=== PATIENT | female | born 1955 | race Caucasian/White ===

== ENCOUNTER 2016-10-18 09:23 | Emergency (ER) | payer OTHER ==
[2016-10-18] MEDS ORDERED: CloNIDine HCL 0.1 MG TABLET PO ONE ×2 (09:44→09:45)
[2016-10-18 10:10] LABS: BASOPHILS % 0.7 (0.0-1.5); EOSINOPHILS % 5.7 % (0.0-6.8); MEAN CORPUSCULAR HEMOGLOBIN 29.8 pg (28.0-34.0); MEAN CORPUSCULAR VOLUME 87.8 fl (80.0-100.0); MONOCYTES % 5.3 % (0.0-11.0); NEUTROPHILS # 2.9 # k/uL (1.4-7.7)
[2016-10-18 10:29] LABS: eGFR (African) > 60; eGFR (Non-African) > 60
[2016-10-18] MEDS ORDERED: hydrALAZINE HCL 20 MG/1 ML IM ONE (10:56)
[2016-10-18] MEDS ORDERED: hydrALAZINE HCL 20 MG/1 ML ONE (10:57)
[2016-10-18 11:45] VITALS: BP 161/83
--- NOTE | 2016-10-18 11:50 | ED Physician Documentation ---
General Adult - HISTORIAN Historian: patient - HPI Stated Complaint: High Blood Pressure Chief Complaint: General Adult Additional Information: Blood pressure high today. Has been using a lot of allergy medications recently. Feels fatigued. No chest pain. No headache. Onset: hours (2) Timing: still present Severity: moderate Modifying Factors: increased allergy meds recently, mowed in heat yesterday Further Comments: no Last known Well Code/Unknown Code: Unknown - ROS CONST: other (fatigue) EYES/ENT: none CVS/RESP: none GI/: none MS/SKIN/LYMPH: none NEURO/PSYCH: denies: headache - PAST HX Past History: hypertension Other History: other (pud) Surgeries/Procedures: other (bladder surgery) Immunizations: referred to PCP Allergies/Adverse Reactions: Allergies Allergy/AdvReac Type Severity Reaction Status Date / Time No Known Drug Allergies Allergy Verified 10/18/16 11:03 Home Medications: Ambulatory Orders Medication Instructions Recorded Azelastine/Fluticasone [Dymista 10/18/16 Nasal [place]] Montelukast Sodium [Singulair] 10 mg PO HS 10/18/16 - SOCIAL HX Smoking History: non-smoker Alcohol Use: occasionally Drug Use: none - FAMILY HX Family History: Yes (cva, htn) - VITAL SIGNS Vital Signs: Vital Signs Temp Pulse Resp BP Pulse Ox 71 16 217/110 98 10/18/16 09:25 10/18/16 09:25 10/18/16 09:25 10/18/16 09:25 - REVIEWED ASSESSMENTS Nursing Assessment Reviewed: Yes Vitals Reviewed: Yes Progress - Results/Orders Results/Orders: cbc, cmp, bnp, trop ordered - Progress Progress: pt. given 0.1 mg clonidine p.o. and 20 mg hydralazine im in er with reduction of bp to 137/88 Critical Care Note - Critical Care Note Total Time (mins): 0 ED Results Lab/Radiology - Lab Results Lab Results: Lab Results 10/18/16 10/18/16 10/18/16 10:00 10:00 10:00 WBC 4.60 K/ul K/ul (4.00-12.00) RBC 5.06 M/ul M/ul (3.90-5.20) Hgb 15.1 g/dL g/dL (12.0-16.0) Hct 44.4 % % (34.5-46.5) MCV 87.8 fl fl (80.0-100.0) MCH 29.8 pg pg (28.0-34.0) MCHC 34.0 g/dL g/dL (30.0-36.0) RDW 13.5 % % (11.3-14.3) Plt Count 207 K/mm3 K/mm3 (130-400) Neut % (Auto) 62.0 % % (39.0-79.0) Lymph % (Auto) 24.7 % % (16.0-50.0) [place] % (Auto) 5.3 % % (0.0-11.0) Eos % (Auto) 5.7 % % (0.0-6.8) Baso % (Auto) 0.7 (0.0-1.5) Neut # (Auto) 2.9 # k/uL # k/uL (1.4-7.7) Lymph # (Auto) 1.2 # k/uL # k/uL (0.6-4.0) [place] # (Auto) 0.2 # k/uL # k/uL (0.0-0.9) Eos # (Auto) 0.3 # k/uL # k/uL (0.0-0.6) Baso # (Auto) 0.0 # k/uL # k/uL (0.0-0.5) Reactive Lymphs % 1.6 % % (0.0-5.0) Reactive Lymphs # 0.1 # k/uL # k/uL (0.0-0.8) Sodium 142 mmol/L mmol/L (136-145) Potassium 3.8 mmol/L mmol/L (3.5-5.0) Chloride 104 mmol/L mmol/L (98-110) Carbon Dioxide 32 mmol/L mmol/L (20-32) BUN 8 mg/dL L mg/dL (10-26) Creatinine 0.7 mg/dL mg/dL (0.4-1.5) Estimated Creat Clear 140 Est GFR ( Amer) > 60 (60 - ) Est GFR (Non-Af Amer) > 60 (60 - ) Glucose 110 mg/dL H mg/dL (70-99) Calcium 10.5 mg/dL mg/dL (8.5-10.5) Total Bilirubin 0.5 mg/dL mg/dL (0.2-1.2) AST 21 U/L U/L (0-41) ALT 15 U/L U/L (0-45) Alkaline Phosphatase 83 U/L U/L (46-116) Troponin I < 0.03 ng/mL L ng/mL (0.03-0.06) NT-Pro-B Natriuret Pep 233.2 pg/mL H pg/mL (15.0-125.0) Total Protein 8.2 g/dL g/dL (6.0-8.5) Albumin 4.9 g/dL g/dL (3.0-5.5) - Radiology Radiology Impressions: none ordered - Orders Orders: ED Orders Category Date Time Status BNP [NT-proBNP] Routine Lab 10/18/16 10:00 Completed CBC/PLATELET/DIFF Routine Lab 10/18/16 10:00 Completed CMP Routine Lab 10/18/16 10:00 Completed TROPONIN I (cTnI) Routine Lab 10/18/16 10:00 Completed URINALYSIS Routine Lab 10/18/16 09:55 Ordered CloNIDine HCL [Catapress] Med 10/18/16 09:44 Discontinued 0.1 mg PO .STK-MED ONE CloNIDine HCL [Catapress] Med 10/18/16 09:45 Discontinued 0.1 mg PO NOW ONE hydrALAZINE HCL [Apresoline] Med 10/18/16 10:57 Discontinued 20 mg .ROUTE .STK-MED ONE hydrALAZINE HCL [Apresoline] Med 10/18/16 10:56 Once 20 mg IM NOW ONE EKG WITH COMPARISON Routine Ther 10/18/16 Ordered General Adult Physical Exam - PHYSICAL EXAM GENERAL APPEARANCE: no distress EENT: eye inspection normal, ENT inspection normal, pharynx normal, no signs of dehydration, KIRAN, no nystagmus, TM's nml NECK: normal inspection, thyroid normal, supple RESPIRATORY: no resp distress, chest non-tender, breath sounds normal CVS: reg rate & rhythm, equal pulses, PMI nml, no JVD, no friction rub, murmur, occasional extrasystoles ABDOMEN: soft, no organomegaly, normal bowel sounds, no abdominal bruit, no distension, non-tender BACK: normal inspection, no CVA tenderness SKIN: warm/dry, normal color EXTREMITIES: non-tender, normal range of motion, no evidence of injury, no edema NEURO: oriented X3, CN's nml as tested, motor nml, sensation nml, mood/affect nml, cognition normal Discharge Clincal Impression: Hypertension Qualifiers: Hypertension type: essential hypertension Qualified Code(s): I10 - Essential ( primary) hypertension Referrals: Heriberto Wagner MD [Primary Care Provider] - 2 Days Home Medications: Ambulatory Orders Azelastine/Fluticasone [Dymista Nasal [place]] 10/18/16 Montelukast Sodium [Singulair] 10 mg PO HS 10/18/16 Comments: Discharged in stable and improved condition with recommendation to eliminate new allergy meds and monitor bp am, afternoon and pm and follow up with primary care provider. Condition: Stable Disposition: 01 HOME, SELF-CARE Decision to Admit: NO Decision Time: 11:40
== END 2016-10-18 11:40 | disposition home or self-care (01) ==
LOC: ED 09:23
DX: I10 Essential (primary) hypertension (principal)
CPT/HCPCS: 80053; 83880; 84484; 85025; J0360; 36415; 96372; 99283

== ENCOUNTER 2016-10-21 07:19 | Emergency (ER) | payer OTHER ==
[2016-10-21] MEDS: CloNIDine HCL 0.1 MG TABLET PO ONE (07:30)
--- NOTE | 2016-10-21 07:58 | ED Physician Documentation ---
General Adult - HISTORIAN Historian: patient - HPI Stated Complaint: High Blood Pressure Chief Complaint: General Adult Further Comments: yes (61 year old female patient presents with complaints of hypertension. States she has not taken her Benicar today. Patient reports being in ER 3 days ago with hypertension. Reports she was changed from name brand Benicar to generic and has had hypertension since the change.) - ROS CONST: no problems EYES/ENT: none CVS/RESP: none GI/: none MS/SKIN/LYMPH: none NEURO/PSYCH: denies: headache, dizziness - PAST HX Past History: hypertension, other (seasonal allergies) Allergies/Adverse Reactions: Allergies Allergy/AdvReac Type Severity Reaction Status Date / Time No Known Drug Allergies Allergy Verified 10/18/16 11:03 Home Medications: Ambulatory Orders Medication Instructions Recorded Azelastine/Fluticasone [Dymista 10/18/16 Nasal [place]] Montelukast Sodium [Singulair] 10 mg PO HS 10/18/16 - SOCIAL HX Smoking History: non-smoker - FAMILY HX Family History: No - VITAL SIGNS Vital Signs: Vital Signs Temp Pulse Resp BP Pulse Ox 97 F L 66 16 207/94 99 10/21/16 07:20 10/21/16 07:20 10/21/16 07:20 10/21/16 07:20 10/21/16 07:20 - REVIEWED ASSESSMENTS Nursing Assessment Reviewed: Yes Vitals Reviewed: Yes ED Results Lab/Radiology - Orders Orders: ED Orders Category Date Time Status CloNIDine HCL [Catapress] Med 10/21/16 07:26 Discontinued 0.1 mg PO NOW ONE General Adult Physical Exam - PHYSICAL EXAM GENERAL APPEARANCE: [id number] N EENT: eye inspection normal, KIRAN RESPIRATORY: no resp distress, chest non-tender, breath sounds normal CVS: reg rate & rhythm, heart sounds normal, equal pulses, no murmur, no gallop , PMI nml, no JVD, no friction rub, 24 ABDOMEN: soft, no organomegaly, normal bowel sounds, no abdominal bruit, no distension SKIN: normal color, warm/dry, NR, INT, PAL, DR EXTREMITIES: non-tender, normal range of motion, no evidence of injury, no edema , J, [employer] NEURO: oriented X3, CN's nml as tested, motor nml, sensation nml, mood/affect nml Discharge Clincal Impression: Hypertension Qualifiers: Hypertension type: essential hypertension Qualified Code(s): I10 - Essential ( primary) hypertension Referrals: Heriberto Wagner MD [Primary Care Provider] - 2 Days Additional Instructions: Fill the new prescription for brand name benicar. Discard your generic olmesartan. Follow up next week with Dr Wagner for BP check Home Medications: Ambulatory Orders Azelastine/Fluticasone [Dymista Nasal [place]] 10/18/16 Montelukast Sodium [Singulair] 10 mg PO HS 10/18/16 Condition: Stable Disposition: 01 HOME, SELF-CARE Decision to Admit: NO Decision Time: 07:58
[2016-10-21 08:06] VITALS: BP 168/69
== END 2016-10-21 08:05 | disposition home or self-care (01) ==
LOC: ED 07:19
DX: I10 Essential (primary) hypertension (principal)
CPT/HCPCS: 99283

== ENCOUNTER 2018-01-07 17:19 | Emergency (ER) | payer OTHER ==
[2018-01-07 17:45] VITALS: BP 189/82
--- NOTE | 2018-01-07 17:58 | ED Physician Documentation ---
Lower Extremity Problem - HPI Stated Complaint: Redness/swelling to Lt foot Chief Complaint: Lower Extremity Problem Additional Information: Patient presents to ED with a 5 day history of left foot swelling and pain. Patient states her foot began to hurt and swell on Saturday. She went to Urgent care. Xrays at that time were negative. She was sent home on Keflex. Her symptoms persisted and she sought further medical care and was prescribed Augementin and Prednsione. Still no improvement in her symptoms. Location of Injury: L foot Onset: days ago (5) Timing: still present Duration: constant Recent Injury: No Where: home Severity: moderate Quality: pain, swelling Exacerbated By: walking Relieved By: rest Associated Symptoms: denies: chest pain, shortness of breath, rapid heart rate, fainting - ROS CONST: no problems MS/SKIN/LYMPH: denies: calf pain, leg swelling CVS/RESP: denies: chest pain, shortness of breath GI/: none EYES/ENT: none NERUO/PSYCH: denies: headache - PAST HX Past History: none PE Risk Factors: denies: hx DVT, cast, recent surgery, bedridden, hx of PE Other History: hypertension Surgeries/Procedures: none Allergies/Adverse Reactions: Allergies Allergy/AdvReac Type Severity Reaction Status Date / Time No Known Drug Allergies Allergy Verified 01/07/18 17:37 Home Medications: Ambulatory Orders Medication Instructions Recorded Amoxicillin/Potassium Clav 1 tab PO BID 01/07/18 [Amox-Clav 875-125 mg Tablet] Losartan Potassium [Cozaar] 100 mg PO HS 01/07/18 predniSONE [Deltasone] 20 mg PO D 01/07/18 - SOCIAL HX Smoking History: non-smoker Alcohol Use: none Drug Use: none - FAMILY HX Family History: none - VITAL SIGNS Vital Signs: Vital Signs Temp Pulse Resp BP Pulse Ox 98.4 F 82 16 189/82 99 01/07/18 17:19 01/07/18 17:19 01/07/18 17:19 01/07/18 17:19 01/07/18 17:19 - REVIEWED ASSESSMENTS Nursing Assessment Reviewed: Yes Vitals Reviewed: Yes ED Results Lab/Radiology - Lab Results Lab Results: Lab Results 01/07/18 18:20 Uric Acid 3.2 mg/dL mg/dL (2.5-6.2) Left ankle, three views. History: FOOT PAIN/SWELLING X1 WEEK Findings: The osseous structures are intact without acute fracture. The ankle mortise is normal. The joint space and alignment are normal. There is mild lateral ankle soft tissue swelling. Plantar calcaneal spur is noted. Impression: 1. No acute osseous abnormality. Electronically signed on Jan 07, 2018 6:56:31 PM CDT by: Maury Urban Left foot, three views. History: FOOT PAIN/SWELLING X1 WEEK Findings: The osseous structures are intact without acute fracture. The joint space and alignment are normal. There is swelling of the forefoot. Plantar calcaneal enthesophyte present. Impression: 1. No acute osseous abnormality. 2. Soft tissue swelling of the foot. Electronically signed on Jan 07, 2018 6:55:35 PM CDT by: Maury Urban - Orders Orders: ED Orders Category Date Time Status FOOT 3 VIEWS OR MORE [RAD] Stat Exams 01/07/18 Taken LEFT ANKLE [ANKLE 3 VIEWS OR MORE] [RAD] Stat Exams 01/07/18 Taken URIC ACID Stat Lab 01/07/18 18:20 Completed Lower Extremity Problem - EXAM General Appearance: no distress Foot: left foot: soft tissue tenderness (tenderness is in the forefoot), swelling (swelling is confined to the foot) Neuro/Tendon: normal sensation EENT: eye inspection normal RESPIRATORY: no resp distress, breath sounds normal CVS: reg rate & rhythm, heart sounds normal JOINT: joints nml, nml ROM VASCULAR: no vascular compromise, pulses full/equal NEURO/PSYCH: oriented X3 SKIN: warm/dry. No: cyanosis BACK: normal inspection Discharge Clincal Impression: Swelling of left foot Referrals: Curt Luz MD [Primary Care Provider] - 2 Days Condition: Good Disposition: 01 HOME, SELF-CARE Decision to Admit: NO Date of Decison to Admit: 01/07/18 Decision Time: 19:15
--- NOTE | 2018-01-08 06:51 | Diagnostic Imaging Report ---
MALACHI BURTON [facility] [address] [facility] [address] [address] Report Submission Date: Jan 07, 2018 6:55:35 PM CDT Patient Study Name: TORITO TIJERINA Date: Jan 07, 2018 6:33:32 PM CDT Modality Type: DX Gender: F Description: LOWER EXTREMITY : 53 Institution: [facility] Physician: MALACHI BURTON Left foot, three views. History: FOOT PAIN/SWELLING X1 WEEK Findings: The osseous structures are intact without acute fracture. The joint space and alignment are normal. There is swelling of the forefoot. Plantar calcaneal enthesophyte present. Impression: 1. No acute osseous abnormality. 2. Soft tissue swelling of the foot. Electronically signed on Jan 07, 2018 6:55:35 PM CDT by: Maury RICO
--- NOTE | 2018-01-08 06:51 | Diagnostic Imaging Report ---
MALACHI BURTON [facility] [address] [facility] [address] [address] Report Submission Date: Jan 07, 2018 6:56:31 PM CDT Patient Study Name: TORITO TIJERINA Date: Jan 07, 2018 6:36:34 PM CDT Modality Type: DX Gender: F Description: LOWER EXTREMITY : 53 Institution: [facility] Physician: MALACHI BURTON Left ankle, three views. History: FOOT PAIN/SWELLING X1 WEEK Findings: The osseous structures are intact without acute fracture. The ankle mortise is normal. The joint space and alignment are normal. There is mild lateral ankle soft tissue swelling. Plantar calcaneal spur is noted. Impression: 1. No acute osseous abnormality. Electronically signed on Jan 07, 2018 6:56:31 PM CDT by: Maury RICO
== END 2018-01-07 19:16 | disposition home or self-care (01) ==
LOC: ED 17:19
DX: R60.0 Localized edema (principal); Z86.79 Personal history of other diseases of the circulatory system
CPT/HCPCS: 73610; 73630; 84550

== ENCOUNTER 2018-02-10 09:21 | Day surgery (SDC) | payer OTHER ==
[~2018-02-10 09:21] MED LIST: LACTATED RINGERS 1,000 ML IV.SOLN IV ONE; LIDOCAINE HCL/PF 2% 100 MG/5 ML VIAL IJ ONE; PROPOFOL 200 MG/20 ML VIAL IV ONE
--- NOTE | 2018-02-11 11:13 | GI Report ---
REFERRING PHYSICIAN: Dr. Curt Luz CHEESE WEIGHER: Nolan Valdez MD PROCEDURE MEDICATION: Propofol as per anesthesia. INDICATIONS: This 62-year-old woman has a strong family history of colorectal cancer. She also had parathyroid surgery and some bladder slings. She denies any recent change in bowel habits or bleeding. PROCEDURE PERFORMED: Colonoscopy and polypectomy. PROCEDURE: An Olympus video colonoscope was advanced to the rectum. A slightly atonic redundant colon and it took some maneuvering to reach the cecum. In the cecum, the patient had 2 polyps removed, 1 was 3 mm and 1 was 4 mm removed with a cold snare. The appendiceal orifice was normal. On withdrawal, ascending colon with no obvious intraluminal lesions noted. Transverse colon, again, redundancy, no obvious intraluminal lesions noted. The descending colon and sigmoid, again, some redundancy, no obvious intraluminal lesions noted. Retroflexion of the rectum showed some hemorrhoids. Patient tolerated the procedure well. FINDINGS: Two polyps removed with a cold snare from the cecum. RECOMMENDATIONS: 1. A high-fiber diet. 2. Pending the pathology of the polyps, she needs her colon re-looked at again in 5 years. cc: Dr. Curt RICO
== END 2018-02-10 09:22 ==
LOC: OPSURG 09:21
PROVIDERS: ATTEND Internal Medicine Gastroenterology
DX: Z12.11 Encounter for screening for malignant neoplasm of colon (principal); D12.0 Benign neoplasm of cecum; Z80.0 Family history of malignant neoplasm of digestive organs; I10 Essential (primary) hypertension; R01.1 Cardiac murmur, unspecified; F17.210 Nicotine dependence, cigarettes, uncomplicated
CPT/HCPCS: 88305; J2001; J2704; J7120; 45385; S1016